=== PATIENT | male | born 1975 | race Caucasian/White ===

== ENCOUNTER 2019-03-02 10:29 | Emergency (ER) | payer OTHER ==
[~2019-03-02] VITALS: Ht 180.3 cm; Wt 90.7 kg
[2019-03-02 10:35] VITALS: BP 130/79
[2019-03-02 10:58] LABS: APPEARANCE,URINE CLEAR (CLEAR); BILIRUBIN,URINE NEGATIVE (NEGATIVE); BLOOD, URINE TRACE-I (NEGATIVE); COLOR,URINE YELLOW (YELLOW); LEUKOCYTE ESTERASE ,URINE NEGATIVE (NEGATIVE); NITRITE, URINE NEGATIVE (NEGATIVE); UGLUCOSE NEGATIVE (NEGATIVE)
--- NOTE | 2019-03-02 10:59 | NUR ---
Patient being evaluated by DR. SHAH at bedside.
--- NOTE | 2019-03-02 11:02 | NUR ---
PT PRESENTS TO THE ED WITH C/O R SIDED GROIN PAIN THAT RADIATES TO R FLANK. PT STATES PAIN FEELS LIKE "NERVE PRESSURE" AND RATES PAIN 7/10 AT THIS TIME. 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 PT PRESENTS WITH A STEADY GAIT. PT SKIN IS PINK, WARM, AND DRY. PT PRESENTS WITH A CLEAR SPEECH AND IS CONVERSING APPROPRIATELY. PT DENIES N/V/D, CP, AND SOB AT THIS TIME. PT REPORTS TAKING NO MEDICATION FOR PAIN. PT POSITIONED FOR COMFORT, HOB ELEVATED, BED RAIL UP X 1 FOR PT SAFETY. PT IS IN A GOWN. URINE SPECIMEN COLLECTED. ER MD AWARE OF PT STATUS. NKA HX: DENIES RX: GABAPENTIN
--- NOTE | 2019-03-02 11:16 | NUR ---
PT RESTING IN BED USING CELLPHONE.
[2019-03-02 11:19] LABS: RBC,URINE 0-5 /HPF (0-5); YEAST,URINE Few /HPF (None Seen)
[2019-03-02 11:20] LABS: WBC,URINE NONE SEEN /HPF (0-5)
--- NOTE | 2019-03-02 11:31 | NUR ---
ULTRASOUND AT BEDSIDE.
[2019-03-02 12:50] VITALS: BP 129/78
--- NOTE | 2019-03-02 12:50 | NUR ---
Patient discharged with v/s stable. Written and verbal after care instructions given and explained. Patient alert, oriented and verbalized understanding of instructions. Ambulatory with steady gait. All questions addressed prior to discharge. ID band removed. Patient advised to follow up with PMD. Rx of Ibuprofen 800mg given. Patient educated on indication of medication including possible reaction and side effects. Opportunity to ask questions provided and answered.
== END 2019-03-02 12:50 | disposition home or self-care (01) ==
LOC: MED 10:29
DX: S39.011A Strain of muscle, fascia and tendon of abdomen, initial encounter (principal); X50.0XXA Overexertion from strenuous movement or load, initial encounter; X50.9XXA Other and unspecified overexertion or strenuous movements or postures, initial encounter; Y93.89 Activity, other specified; Y92.89 Other specified places as the place of occurrence of the external cause; Y99.8 Other external cause status
CPT/HCPCS: 76870; 81001; 99284; Q0092

== ENCOUNTER 2023-02-11 16:53 | Emergency (ER) | payer MEDICAID, OTHER ==
[~2023-02-11] VITALS: Ht 180.3 cm; Wt 86.2 kg
[2023-02-11 17:03] VITALS: BP 140/96; PULSE 81; RESP 18; TEMP 97.8; O2SAT 98
[2023-02-11] MEDS ORDERED: KETOROLAC 30 MG/ML VIAL IVP ONE (17:20)
[2023-02-11 17:30] VITALS: O2SAT 98
[2023-02-11 17:31] LABS: BASOPHILS # (AUTO) 0.1 K/uL (0.00-0.22); BASOPHILS % (AUTO) 0.8 % (0.0-2.0); EOSINOPHILS # (AUTO) 0.3 K/uL (0-0.4); EOSINOPHILS % (AUTO) 2.9 % (0.0-4.0); HEMATOCRIT 38.5 % (36-52); HEMOGLOBIN 13.1 g/dL (12.0-18.0); LYMPHOCYTES # (AUTO) 2.6 K/uL (2.0-11.5); LYMPHOCYTES % (AUTO) 29.5 % (20.5-51.1); MEAN CORPUSCULAR HEMOGLOBIN 31 pg (27-31); MEAN CORPUSCULAR HGB CONC 34 g/dL (33-37); MEAN CORPUSCULAR VOLUME 89.8 fL (80-94); MONOCYTES # (AUTO) 0.6 K/uL (0.8-1.0); MONOCYTES % (AUTO) 6.7 % (1.7-9.3); NEUTROPHILS # (AUTO) 5.2 K/uL (1.8-7.7); NEUTROPHILS % (AUTO) 60.1 % (42.2-75.2); PLATELET COUNT (AUTO) 251 K/uL (140-450); RED BLOOD CELL COUNT(AUTO) 4.29 MIL/uL (4.20-6.10); RED CELL DISTRIBUTION WIDTH 13.5 % (11.6-13.7); WHITE BLOOD COUNT (AUTO) 8.7 K/uL (4.8-10.8)
[2023-02-11 17:44] LABS: ALBUMIN 3.5 g/dL (3.4-5.0); ANION GAP 10.4 (8-16); CALCIUM 8.5 mg/dL (8.5-10.1); CARBON DIOXIDE 28.7 mmol/L (21-32); CREATININE 0.9 mg/dL (0.6-1.3); POTASSIUM 4.1 mmol/L (3.5-5.1); TOTAL BILIRUBIN 0.2 mg/dL (0.0-1.0); TOTAL PROTEIN, SERUM 6.7 g/dL (6.4-8.2)
[2023-02-11 17:45] LABS: APPEARANCE,URINE CLEAR (CLEAR); BILIRUBIN,URINE NEGATIVE (NEGATIVE); BLOOD, URINE TRACE-I (NEGATIVE); COLOR,URINE YELLOW (YELLOW); LEUKOCYTE ESTERASE ,URINE NEGATIVE (NEGATIVE); NITRITE, URINE NEGATIVE (NEGATIVE); PROTEIN,URINE NEGATIVE (NEGATIVE); UGLUCOSE NEGATIVE (NEGATIVE); UROBILINOGEN,URINE 0.2 EU/dL (0.2 - 1)
[2023-02-11 18:04] LABS: BACTERIA,URINE None Seen /HPF (None Seen); RBC,URINE 0-5 /HPF (0-5); SQUAMOUS EPITHELIAL CELL,UR 0-3 (FEW) /LPF (0-3 (FEW)); WBC,URINE NONE SEEN /HPF (0-5)
[2023-02-11 18:05] LABS: MUCUS,URINE None Seen /LPF (None Seen); TRICHOMONAS,URINE None Seen /HPF (None Seen); YEAST,URINE None Seen /HPF (None Seen)
[2023-02-11] MEDS ORDERED: LID5T TP (18:30)
[2023-02-11] MEDS ORDERED: CYCL-711 PO (18:30)
[2023-02-11] MEDS ORDERED: IBUP-2213 PO (18:30)
[2023-02-11] MEDS ORDERED: LIDOCAINE 5% 1 EA PATCH TP ONE (18:30)
[2023-02-11 18:37] VITALS: BP 140/96; PULSE 81; RESP 18; TEMP 97.8; O2SAT 98
== END 2023-02-11 18:34 | disposition home or self-care (01) ==
LOC: MED 16:53
DX: R10.9 Unspecified abdominal pain (principal); I10 Essential (primary) hypertension; Z79.899 Other long term (current) drug therapy
CPT/HCPCS: 36415; 71101; 76705; 80053; 81001; 83690; 85025; 96374; 99285; J1885